=== PATIENT | male | born 1935 | race African-American/Black ===

== ENCOUNTER 2022-02-12 19:35 | Emergency (ER) | payer MEDICARE ==
[~2022-02-12] VITALS: Ht 177.8 cm; Wt 67.6 kg
[2022-02-12 19:38] VITALS: BP 157/85
--- NOTE | 2022-02-12 19:38 | NUR ---
BIBA TAKEN TO BED #4
--- NOTE | 2022-02-12 20:00 | NUR ---
Dr. Sheppard examining patient.
--- NOTE | 2022-02-12 22:30 | NUR ---
ATTEMPTED TO INSERT 3 WAY SROTO CATHETER FOR IRRIGATION BUT WAS UNSUCCESSFUL. FLUSHED 2X. MD AWARE. MD ORDERED TO JUST INSERT 2 WAY. NO URINE OUTPUT AT THIS TIME.
--- NOTE | 2022-02-12 23:10 | NUR ---
Dr. Martinez examining patient.
[2022-02-12] MEDS ORDERED: TAMSULOSIN 0.4 MG CAP PO ONE (23:25)
--- NOTE | 2022-02-12 23:28 | NUR ---
ASSUMED CARE AT THIS TIME. PT C/O URINARY RETENTION. PT AT BEDSIDE.
--- NOTE | 2022-02-12 23:47 | NUR ---
ULTRASOUND AT BEDSIDE
--- NOTE | 2022-02-13 00:52 | NUR ---
BLADDER SCAN 128ML. PT TAKEN TO CT SCAN.
[2022-02-13] MEDS ORDERED: ENOXAPARIN 60 MG/0.6 ML SYR SUBQ ONE ×2 (06:05→07:52)
--- NOTE | 2022-02-13 07:48 | NUR ---
REPORT RECEIVED, CARE ASSUMED, PT ASSESSED. PT LYING IN BED, RESP EASY, MM PINK, NO APPARENT DISTRESS. SISTER AT BEDSIDE.
[2022-02-13 08:56] LABS: BASOPHILS % (AUTO) 0.2 % (0.0-2.0); HEMATOCRIT 32.6 % (36-52); HEMOGLOBIN 10.4 g/dL (12.0-18.0); LYMPHOCYTES # (AUTO) 1.5 K/uL (2.0-11.5); LYMPHOCYTES % (AUTO) 6.4 % (20.5-51.1); MEAN CORPUSCULAR HEMOGLOBIN 28 pg (27-31); MEAN CORPUSCULAR HGB CONC 32 g/dL (33-37); MEAN CORPUSCULAR VOLUME 88.1 fL (80-94); MONOCYTES # (AUTO) 0.7 K/uL (0.8-1.0); MONOCYTES % (AUTO) 2.8 % (1.7-9.3); NEUTROPHILS # (AUTO) 21.3 K/uL (1.8-7.7); NEUTROPHILS % (AUTO) 90.6 % (42.2-75.2); PLATELET COUNT (AUTO) 360 K/uL (140-450); RED BLOOD CELL COUNT(AUTO) 3.71 MIL/uL (4.20-6.10); RED CELL DISTRIBUTION WIDTH 16.5 % (11.6-13.7); WHITE BLOOD COUNT (AUTO) 23.5 K/uL (4.8-10.8)
[2022-02-13 09:13] LABS: ALBUMIN 1.8 g/dL (3.4-5.0); ANION GAP 19.7 (8-16); ASPARTATE AMINOTRANSFERASE 23 U/L (15-37); CARBON DIOXIDE 19.3 mmol/L (21-32); CHLORIDE 102 mmol/L (98-107); GLUCOSE 102 mg/dL (74-106); SODIUM SERUM 137 mmol/L (136-145); TOTAL BILIRUBIN 0.4 mg/dL (0.0-1.0); UREA NITROGEN, BLOOD 55 mg/dL (7-18)
[2022-02-13 09:19] LABS: PROTHROMBIN TIME 11.5 secs (10.8-13.4)
[2022-02-13] MEDS ORDERED: PIPERACILLIN/TAZOBACTAM 3.375 GM in DEXTROSE 5% 50 ML IV ONE (09:45)
--- NOTE | 2022-02-13 10:15 | NUR ---
PT LYING IN BED RESP EASY, MM PINK, NO APPARENT DISTRES. DENIES C/O PAIN
--- NOTE | 2022-02-13 10:20 | NUR ---
IV STARTED IN L HAND W 22 G ANGIO, GOOD BLOOD RETURN FLUSHES EASILY.
[2022-02-13] MEDS ORDERED: PIPERACILLIN/TAZOBACTAM 3.375 GM VIAL IV ONE (10:29)
[2022-02-13] MEDS ORDERED: NACL 0.9% 500 ML IV ONE (10:40)
--- NOTE | 2022-02-13 12:22 | NUR ---
BLADDER SCAN DONE WITH VOLUME 282ML, REPORTED TO DR GUEVARA, PT ALSO VERY FIRM AND TENDER IN LOWER ABD
--- NOTE | 2022-02-13 12:36 | NUR ---
Dr. Vázquez at bedside.
--- NOTE | 2022-02-13 12:47 | NUR ---
Dr. Vázquez at bedside, F/C placed.
--- NOTE | 2022-02-13 12:51 | NUR ---
Urine sample walked to lab.
[2022-02-13 13:21] LABS: APPEARANCE,URINE HAZY (CLEAR); BILIRUBIN,URINE NEGATIVE (NEGATIVE); BLOOD, URINE 3+ (NEGATIVE); COLOR,URINE AMBER (YELLOW); LEUKOCYTE ESTERASE ,URINE 3+ (NEGATIVE); NITRITE, URINE NEGATIVE (NEGATIVE); UGLUCOSE NEGATIVE (NEGATIVE)
[2022-02-13 13:29] LABS: RBC,URINE 11-20 (MOD) /HPF (0-5); WBC,URINE 60-80 /HPF (0-5)
[2022-02-13 14:16] VITALS: BP 114/63
--- NOTE | 2022-02-13 14:24 | NUR ---
[facility] AT BEDSIDE FOR TRANSPORT
--- NOTE | 2022-02-13 14:38 | NUR ---
Patient to be transferred to [facility]. Is being transferred due to HIGHER LEVEL OF CARE. Receiving facility has accepting physician and available space. ER physician has signed transfer form. Patient or responsible constitution party has agreed to transfer and signed form. Patient belongings inventoried and will be sent with patient. Copy of nursing notes, lab reports, EKG, Physicians Orders and X-rays to be sent with patient. Report called to at receiving facility. [facility] ambulance service has been called for transfer. ETA is .
--- NOTE | 2022-02-16 10:06 | NUR ---
LATE ENTRY. RECEIVED POSITIVE URINE CULTURE. FORM SIGNED BY DR CHRISTIANSON. PT WAS TRANSFERRED TO [facility]. SPOKE WITH PTS NURSE, IGGY. RESULTS FAXED. RECEIVED CONFIRMATION.
== END 2022-02-13 14:36 | disposition short-term general hospital (02) ==
LOC: MED 19:35
DX: R31.9 Hematuria, unspecified (principal); Z20.822 Contact with and (suspected) exposure to COVID-19; R33.9 Retention of urine, unspecified; Z85.46 Personal history of malignant neoplasm of prostate; Z88.8 Allergy status to other drugs, medicaments and biological substances
CPT/HCPCS: 36415; 51702; 74176; 80053; 81001; 83605; 85025; 85610; 85730; 87040; 87086; 87426; 93971; 96361; 96365; 96372; 99285; J1650; J2543; Q0092